=== PATIENT | female | born 1965 | race Caucasian/White ===

== ENCOUNTER → 2016-11-05 | Outpatient (CLI) | payer BC ==
[~2016-11-05] MED LIST: TAMO20TA9 PO
[2016-11-05 14:26] VITALS: BP 119/78; PULSE 103; TEMP 37; O2SAT 96
--- NOTE | 2016-11-05 16:33 | Radiation Oncology Follow-Up ---
Radiation Oncology Follow-Up Date of Visit November 05, 2016. 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 Status: Resolved Onset Date: 12/03/2015 Histology Subtype: ductal Stage: l Permanent Comment: Abnormal right breast mammogram Status post core needle biopsy 12/03/2015 revealing invasive ductal carcinoma Estrogen receptor positive, progesterone receptor positive and HER-2/ofe negative Status post lumpectomy and sentinel lymph node biopsy 12/28/2015 Stage [id number] multifocal 4.5 cm mostly fibrous tissue, therefore stage I, grade 2 BRCA1 and BRCA2 negative Oncotype DX score of 24 patient opted for no chemotherapy Status post completion of radiation therapy 03/26/2016 received 5130 cGy utilizing hypo-fractionation Last Edited By: Alondra Dawn on May 06, 2016 15:31 History of Present Illness Ms. Ham is a 50-year-old female with a distant family history of breast cancer. The patient's maternal aunt was diagnosed with breast cancer at an early age and at age 44. The patient has been followed with screening mammograms and on 11/15/2015 underwent bilateral digital screening mammograms that were compared to the prior studies from 11/13/2014. This study showed a large area of architectural distortion seen within the right upper outer quadrant with associated calcifications. Spot magnification views and breast ultrasound were recommended for further evaluation. Additionally there were possible obscured round/oval mass is seen within the left upper outer quadrant best seen on the top synthesis images. These were thought to represent cysts with ultrasound recommended for further evaluation. On 11/28/2015 the patient underwent a unilateral right digital diagnostic mammogram and targeted bilateral ultrasounds. A 5 cm diameter area of architectural distortion was noted in the upper outer middle one third of the right breast. On spot magnification MLO view there appeared to be a central spiculated mass within the area of architectural distortion measuring approximately 1.3 cm. There were associated round and punctate microcalcifications which could be associated with the mass. However there were clustered round and punctate microcalcifications in the same location on all available prior mammograms dating back to 2006. Further evaluation with ultrasound was performed. Real time high resolution sonographic evaluation was performed in the lateral left breast and in the right upper outer quadrant including the axilla. In the left retroareolar breast that was benign duct ectasia. There was a discrete oval or loss circumscribed hypoechoic cystic-appearing mass with internal punctate reflector's measuring 1.76 x 0.5 x 1.37 cm likely representing a complicated cyst. Another probable complicated cyst was seen in the 4 o'clock position of the left breast 1 cm from the nipple measuring 0.7 x 0.4 x 0.8 cm. 2 adjacent lobulated ALT parallel cyst identified at the 2 o'clock position of the left breast 3 cm in the nipple measuring 1.7 x 0.5 x 1.0 cm and 0.6 x 1.0 x 0.3 cm. Within the right breast 2 cm no nipple architectural distortion is noted on ultrasound. Essentially there was an irregular hypoechoic solid-appearing mass with internal punctate reflector's measuring 1.6 x 1.4 x 1.6 cm. To morphologically normal lymph nodes are seen in the right axilla. On 12/03/2015 the patient underwent an ultrasound guided core biopsy of the right breast at the 10 o'clock position. This revealed an invasive ductal carcinoma, Tricia grade 1 of 3. No lymphovascular invasion was identified. Estrogen receptors were positive (100%, strong intensity, a T score 300). Progesterone receptors were positive (5%, intermediate intensity, each score 10) . HER-2/ofe overexpression was equivocal (score 2+, 80% weak to moderate staining). The tumor cells were negative for HER-2/ofe amplification by FISH. Ki-67 proliferation index was 2-3% (low) and the tumor measured up to 0.8 cm on the glass slide. The patient was seen by Dr. Godinez for evaluation and discussion of the surgical options. We discussed the possible mastectomy or breast conserving therapies. He did discuss with the patient's maternal aunt that an Oncotype DX testing may be helpful. The patient really ultimately agreed to a right partial mastectomy and sentinel node biopsy. This was performed on 11/28/2015. The sentinel node was negative. The mastectomy specimen revealed grossly an area of apparent tumor that measured 4.5 x 3 x 2.5 cm. Microscopically however the majority of this tissue was fibrosis rather than tumor. This thus stated that the tumor is considerably smaller than that measurement. However precise tumor size and therefore tumor stage cannot be easily determined. The tumor grade was a Linden grade 2 of 3. There was felt to be possible multifocality. No. Neural invasion was seen and no lymphovascular space invasion was seen. The margins were identified and the initial margins on the lumpectomy specimen were negative however the en face deep margin revealed a small focus of infiltrating ductal carcinoma Linden grade 1 of 3. Additional superior deep margin was taken and was benign. There was stated that this tissue could represent a discontiguous spread of tumor from her main primary or it could represent a second smaller primary. Given the tissue however it is not possible to distinguish between these 2 options. Case: [id number]. Dr. Godinez noted the microscopic focus of tumor but stated that tissue was taken down to the muscle and felt that the final margin was therefore clear. The deep margin on the main specimen was negative but close at 0.5 cm. Because of these more aggressive tendencies Dr. Godinez suggested an Oncotype DX testing to better define this tumor. The tissue was sent and the recurrence score came back as a 24. This places her in the middle of the intermediate risk. The patient also underwent genetic testing and there was no clinically significant variants detected. The potential role of systemic chemotherapy was discussed however the patient did not wish to consider this and therefore a referral was not considered. The role of radiation was discussed and Dr. Lombardi was kind enough to ask us to see this patient in referral to review with her the role of adjuvant radiation. It is for this reason that the patient is seen in referral. She underwent a CT simulation was found a candidate for hypo-fractionation. Radiation was completed 03/26/2016. She received 5130 cGy. Interim History She's been doing well over the past 6 months in regards to her breast treatment. She is noted no masses or tenderness no axillary adenopathy. She has noticed no swelling of her arm. She is up-to-date on mammography. She had a mammogram 05/29/2016. This showed expected postsurgical changes in the right breast status post lumpectomy, without suspicious masses or calcifications. Recommended follow-up in 6 months for the right breast. The left breast was evaluated there is a stable mass on ultrasound these are benign and compatible with cysts. BI-RADS Category 3. She's been having issues with constipation and lower abdominal discomfort. This is been happening over the past month. She has discomfort in the left lower quadrant. She'll have premenstrual symptoms. She is postmenopausal for one year. She has had issues in the past with dysplasia and had a colposcopy. She'll be seeing the machine helper on December 08. Bowel movements occur usually daily. This had been happening every 3 days. More recently the bowel movements are daily but she has to strain to have a bowel movement. There is no complaint of rectal bleeding. Allergies Coded Allergies: No Known Allergies (Verified , 01/23/12) Home Medications Scheduled Tamoxifen (Nolvadex), 20 MG PO DAILY Review of Systems Gastrointestinal: Symptoms: WNL GI Comments: Constipation - helped with stool softener Oral: Symptoms: No Problems Other Oral Symptoms: Start of sore throat Respiratory: Symptoms: WNL Urinary: Symptoms: WNL Skin: Symptoms: No Problems Breast: Right Upper Arm Measurement: 25.3 Right Mid Arm Measurement: 23.2 Right Wrist Measurement: 15.2 Left Upper Arm Measurement: 26.4 Left Mid Arm Measurement: 22.7 Left Wrist Measurement: 15.0 Arm Dominence: Right Physical Exam Vital Signs Date Time Temp Pulse Resp B/P Pulse Ox O2 Delivery O2 Flow Rate FiO2 11/05/16 14:26 37.0 103 14 119/78 96 Fatigue: None General Appearance: no apparent distress Eyes: normal inspection, EOMI ENT: normal ENT inspection, hearing grossly normal Neck: no adenopathy Respiratory/Chest: lungs clear, no respiratory distress, no accessory muscle use Breast: Breast examination reveals well-healed incisions of the right breast. There are no masses or tenderness and no axillary adenopathy. Very slight hyperpigmentation. There are no skin retractions or nipple changes. Using the Thendara score cosmesis she has a good outcome. The left breast showed no masses or tenderness and no axillary adenopathy. Cardiovascular: regular rate, rhythm, no gallop, no murmur Abdomen: soft, + pertinent finding (very mild tenderness in the lower quadrants ) Extremities: no pedal edema Neurologic/Psychiatric: no motor/sensory deficits, alert, normal mood/affect Skin: warm/dry Additional Studies Patient: GLORIA HAM [facility] Rec: [id number] Address1: [facility] [address] CURRAN Address2: [address] [facility] Acct ID: [id number] Date: 1965 Sex: F Ref Phy: Att Phy: Brandon Godinez M.D. Dina Phy: No Doctor, Assigned Inter Phy: Bhumika Hernandez MD [facility] Zip: [place] [address] SC: [id number] Report #: [id number] Meter Mechanic: TAWANNA Diagnosis: 6 MO F/U BILATERAL FOR STABILITY Service Date: 05/29/16 MNE: [id number] Ordering Dr: Brandon Godinez M.D. CC: Brandon Godinez M.D. CONF: DICTATED BY: Bhumika Hernandez MD MAMMOGRAPHY REPORT BILATERAL DIGITAL DIAGNOSTIC MAMMOGRAM TOMOSYNTHESIS WITH CAD AND TARGETED LEFT ULTRASOUND: 05/29/2016 CLINICAL HISTORY: History of right breast cancer status post right lumpectomy December 2015, as well as radiation therapy. Here for short interval follow-up. TECHNIQUE: Breast tomosynthesis, in addition to standard 2D mammography was performed.. Current study was also evaluated with a Computer Aided Detection ( CAD) system. Bilateral CC and MLO 2-D and tomosynthesis views and spot magnification right cc and ML views were obtained. COMPARISON: Comparison is made to exams dated: 12/03/2015 mammogram, 11/28/2015 mammogram, 11/15/2015 mammogram, 11/13/2014 mammogram, 11/05/2012 mammogram, and mammogram - [facility]. BREAST COMPOSITION: The tissue of both breasts is heterogeneously dense, which may obscure small masses. FINDINGS: There are new postsurgical changes in the right upper outer quadrant status post lumpectomy, including density, architectural distortion, and surgical clips at the surgical bed. Spot magnification views of the lumpectomy bed demonstrate scattered punctate/round calcifications which appear stable compared to multiple prior exams, without a suspicious or new cluster of macrocalcifications seen. There is mild diffuse right breast skin thickening, likely a sequela of radiation therapy. Remainder of both breasts are stable compared to prior exams, without suspicious masses, calcifications, or areas of architectural distortion noted. Scattered bilateral benign-appearing calcifications are not significantly changed. Targeted ultrasound was performed of the left lateral breast in the region of the previously seen masses. In the left breast at 2:00, 3 cm from the nipple, again noted is an anechoic benign simple cyst measuring 1.6 cm, not significantly changed. Additionally, an oval circumscribed mass measuring 7 mm in the left breast at 4:00, 1 cm from the nipple, is also stable; it is predominantly anechoic with some echogenic material within it suggesting a mildly complicated cyst. In the left breast at 2:00, 3 cm from the nipple, an oval anechoic cyst measuring 1.8 x 0.5 x 0.9 cm is also not significantly changed. A 5 x 5 mm anechoic benign cyst is also seen in the adjacent breast. Overall, findings are most compatible with benign cysts. No suspicious solid masses are evident. IMPRESSION: IMPRESSION: ACR-BI-RADS CATEGORY 3: PROBABLY BENIGN, TARGETED ULTRASOUND ACR-BI-RADS CATEGORY 3: PROBABLY BENIGN 1. Expected post surgical changes in the right breast status post lumpectomy, without suspicious masses or calcifications noted. Recommend follow-up diagnostic mammograms of the right breast in 6 months to reevaluate the right breast postsurgical changes. 2. Stable left breast masses on ultrasound, which are benign and most compatible with cysts. The patient has been verbally notified of the results. Approximately 10% of breast cancers are not detected with mammography. A negative mammographic report should not delay biopsy if a clinically suggestive mass is present. Bhumika Hernandez M.D. ah/:05/29/2016 12:22:28 Bone Process Operator: Jessi ZAIDI)(Parrish), [facility] letter sent: Personal History 3 BI-RADS Code: ACR-BI-RADS Category 3: Probably Benign Ultrasound BI-RADS: ACR- BI-RADS Category 3: Probably Benign Dictated by: Bhumika Hernandez MD Signed by: Bhumika Hernandez MD Assessment & Plan Plan: Continue follow-up mammography as scheduled. Continue regular follow-up with Dr. Godinez and her machine helper. She'll be seeing Dr. Maggie Anne December 08. We discussed the problems with constipation in the lower abdominal discomfort. I've asked her to increased fluid in her diet. She'll increase fruits and vegetables. She did take a stool softener once daily. We discussed that it is now time for her to have a colonoscopy the age of 50. I've asked her to obtain a sooner appointment with gynecology if her pain increases. We discussed smoke cessation. We reviewed weaning off of cigarettes. She'll try to steadily decrease and discontinue smoking. I asked her to return to our office in 1 year. She may call if she has any questions or concerns in the interim. Total Time In Follow-Up I spent 20 minutes speaking to the patient performing examination. I spent 15 minutes reviewing information in completing this note. Copy To Brandon Godinez M.D.; Maggie Anne M.D.
== END | disposition home or self-care (01) ==
LOC: C.ONC 14:22
PROVIDERS: ATTEND Physician Assistant Medical
DX: Z08 Encounter for follow-up examination after completed treatment for malignant neoplasm (principal); Z92.3 Personal history of irradiation; Z85.3 Personal history of malignant neoplasm of breast

== ENCOUNTER → 2016-11-27 | Outpatient (CLI) | payer BC ==
--- NOTE | 2016-11-27 16:17 | MAMMOGRAPHY REPORT ---
UNILATERAL RIGHT DIGITAL DIAGNOSTIC MAMMOGRAM TOMOSYNTHESIS WITH CAD: 11/27/2016 CLINICAL HISTORY: 50-year-old woman with a personal history of right breast cancer status post breast conservation therapy presents for follow-up in the right breast to ensure stability after treatment. TECHNIQUE: Right CC and MLO 2-D digital and tomosynthesis images, spot magnification right CC and ML views were obtained. Current study was also evaluated with a Computer Aided Detection (CAD) system. COMPARISON: Comparison is made to exams dated: 05/29/2016 ultrasound, 05/29/2016 mammogram, 12/03/2015 m ammogram, 12/03/2015 ultrasound biopsy, 11/28/2015 ultrasound, and 11/28/2015 mammogram - [facility]. BREAST COMPOSITION: The tissue of the right breast is heterogeneously dense, which may obscure small masses. FINDINGS: There is expected architectural distortion and associated surgical clips in the upper outer posterior right breast, at the site of prior lumpectomy. There are no unexpected areas of deal architect ural distortion, developing asymmetry or new suspicious mass. There are microcalcifications scattere d throughout the right breast, best visualized on the spot magnification views. Many of the round mi crocalcifications are located inferior to the postsurgical architectural distortion on the spot magni fication MLO view and project over the area of distortion on the spot magnification CC view. These a re unchanged comparing to the prior spot magnification views performed 05/29/2016. They most likely represent benign calcifications as many micro-calcifications were present prior to surgery. However, another short interval follow-up diagnostic right mammogram including repeat spot magnification view s is recommended in 6 months to ensure longer stability. Annual left mammography will be due at that time. IMPRESSION: ACR-BI-RADS CATEGORY 3: PROBABLY BENIGN 1. Stable posttreatment changes in the right breast including benign-appearing rounded punctate micro calcifications throughout the right breast that appear similar compared to the prior spot magnificati on views and are probably benign. However, another short interval follow-up diagnostic right mammogr am is recommended in 6 months. Annual left mammography will be due at that time. 2. Given the heterogeneously dense breasts, multiple calcifications and personal history of right br east cancer, would also recommend additional screening with breast MRI. These results and recommendations were discussed with the patient at the time of the exam. Approximately 10% of breast cancers are not detected with mammography. A negative mammographic report should not delay biopsy if a clinically suggestive mass is present. Agustina Joseph M.D. ay/:11/27/2016 15:23:48 Quality Rn: Hortencia PATE(Alie)(Parrish), [facility] letter sent: Follow Up Recommended 3 BI-RADS Code: ACR-BI-RADS Category 3: Probably Benign
== END | disposition home or self-care (01) ==
LOC: C.MAMM 08:33
PROVIDERS: ATTEND Surgery
DX: Z08 Encounter for follow-up examination after completed treatment for malignant neoplasm (principal); Z85.3 Personal history of malignant neoplasm of breast; R92.0 Mammographic microcalcification found on diagnostic imaging of breast

== ENCOUNTER → 2016-12-08 | Outpatient (CLI) | payer BC | END | disposition home or self-care (01) | LOC: C.PAPS 11:40 | PROVIDERS: ATTEND Obstetrics & Gynecology | DX: Z01.419 Encounter for gynecological examination (general) (routine) without abnormal findings (principal); Z85.3 Personal history of malignant neoplasm of breast ==

== ENCOUNTER → 2017-06-01 | Outpatient (CLI) | payer BC ==
--- NOTE | 2017-06-01 15:20 | MAMMOGRAPHY REPORT ---
BILATERAL DIGITAL DIAGNOSTIC MAMMOGRAM TOMOSYNTHESIS WITH CAD: 06/01/2017 CLINICAL HISTORY: 51-year-old woman with a personal history of right breast cancer status post breast conservation treatment with lumpectomy and radiation therapy. She presents for another close follow -up in the right breast and also annual screening evaluation of the left breast. TECHNIQUE: Bilateral CC and MLO 2-D and tomosynthesis images, spot magnification right CC and ML vie ws were obtained. Current study was also evaluated with a Computer Aided Detection (CAD) system. COMPARISON: Comparison is made to exams dated: 11/27/2016 mammogram, 05/29/2016 mammogram, 12/03/2015 [place] mogram, 11/28/2015 ultrasound, 11/28/2015 mammogram, and 11/13/2014 mammogram - [facility]. BREAST COMPOSITION: The tissue of both breasts is heterogeneously dense, which may obscure small mas ses. FINDINGS: There is expected architectural distortion and surgical clips in the upper outer posterior right breast, at the site of prior lumpectomy. There are stable benign-appearing round and punctate calcifications in the right breast inferior to the surgical site on both the MLO and spot magnificati on ML views. No unexpected architectural distortion, new mass, asymmetry or new suspicious microcalc ifications are identified in the right breast. The parenchymal pattern of the left breast is stable comparing to prior mammograms. There are diffus e benign-appearing round, punctate and coarse calcifications in the left breast and stable subcentime ter circumscribed masses scattered throughout the left breast. No suspicious spiculated or irregular mass, architectural distortion or cluster of new, suspicious microcalcifications is seen. IMPRESSION: ACR-BI-RADS CATEGORY 3: PROBABLY BENIGN Stable bilateral mammograms, including expected posttreatment changes in the right breast. No defini te mammographic evidence of malignancy bilaterally. Recommend another close follow-up right diagnost ic tomosynthesis mammogram and possible ultrasound to ensure longer stability after treatment. Would also consider additional screening with breast MRI given the personal history of right breast cancer and heterogeneous, nodular breast parenchyma. These results and recommendations were discussed with the patient at the time of the exam. Approximately 10% of breast cancers are not detected with mammography. A negative mammographic report should not delay biopsy if a clinically suggestive mass is present. Agustina Joseph M.D. ay/:06/01/2017 14:51:56 Associate Professor Of Literacy: Jessi PATE(R)(M), [facility] letter sent: Follow Up Recommended 3 BI-RADS Code: ACR-BI-RADS Category 3: Probably Benign
== END | disposition home or self-care (01) ==
LOC: C.MAMM 08:35
PROVIDERS: ATTEND Surgery
DX: Z08 Encounter for follow-up examination after completed treatment for malignant neoplasm (principal); Z85.3 Personal history of malignant neoplasm of breast

== ENCOUNTER → 2017-07-06 | Outpatient (CLI) | payer BC | END | disposition home or self-care (01) | LOC: C.PAPS 11:38 | PROVIDERS: ATTEND Obstetrics & Gynecology | DX: B97.7 Papillomavirus as the cause of diseases classified elsewhere (principal) ==